=== PATIENT | male | born 1975 | race Caucasian/White ===

== ENCOUNTER 2024-07-13 13:38 | Emergency (ER) | payer OTHER ==
[~2024-07-13] VITALS: Ht 170.2 cm; Wt 95.3 kg
[~2024-07-13 13:38] MED LIST: CODE118S2 PO; MOXI400T PO
[2024-07-13 14:10] VITALS: BP_SYST 127; PULSE 83; RESP 18; TEMP 97.8; O2SAT 97
[2024-07-13] MEDS: HYDROcodone/ACETAMIN 5-325 MG TAB (NORCO/ VICODIN) PO ONE (14:58)
[2024-07-13] MEDS ORDERED: HYDR-3917 PO (16:05)
[2024-07-13 16:15] VITALS: BP_SYST 127; PULSE 83; RESP 18; TEMP 97.8; O2SAT 97
== END 2024-07-13 16:15 | disposition home or self-care (01) ==
LOC: SED 13:38
DX: R25.2 Cramp and spasm (principal); M79.662 Pain in left lower leg
CPT/HCPCS: 93971; 99284